=== PATIENT | male | born 1995 | race Caucasian/White ===

== ENCOUNTER 2021-07-11 17:30 | Observation (INO) ==
[2021-07-11] MEDS ORDERED: TXA 10% Non-IV Routes 100 MG/ML VIAL NEB ONE (18:09)
[2021-07-11] MEDS ORDERED: DEXAMETHASONE SOD INJ 4 MG/ML VIAL IV STA (18:10)
[2021-07-11] MEDS ORDERED: ONDANSETRON INJ 2 MG/ML 2 ML VIAL IV STA (18:10)
[2021-07-11] MEDS ORDERED: AMPICILLIN/SULBACTAM SOD 3,000 MG in 0.9 % SODIUM CHLORIDE 100 ML IV STA (18:10)
--- NOTE | 2021-07-11 18:27 | Emergency Department Note ---
Impression & Plan Acute tonsillitis, Infectious mononucleosis ED Provider Note NAME: DELVIS SWARTZ AGE: 25 SEX: M : 1995 ARRIVES VIA: Walk-In INFORMANT: Patient, ED PROVIDER(S): Barry Moran DO CHIEF COMPLAINT: Sore throat HPI: The patient is a 25-year-old male who presented to the emergency department for sore throat. The patient states he has had symptoms for the course the last few weeks. He was seen while he was at home at an urgent care and was diagnosed with mononucleosis. He started having worsening symptoms over the course the last few days and started having blood from his tonsil. The patient has a bag and the spitting into. He is having marc blood from the tonsil. He was diagnosed with mononucleosis. He was told he had a small ulcer on the tonsil at that time. He has had no fever. He denies having any abdominal pain. He has had no weakness in the arms or legs. Symptoms are moderate to severe. He has been taking [id number] medication without relief. ROS: See above HPI for pertinent positives & negatives. A total of 10 systems reviewed and were otherwise negative. PAST MEDICAL HISTORY: See Below PAST SURGICAL HISTORY: See Below FAMILY HISTORY: See Below SOCIAL HISTORY: See Below HOME MEDICATIONS: See Below ALLERGIES: See Below VITALS: See Below PHYSICAL EXAMINATION: GENERAL: The patient is awake and alert. The patient is very anxious appearing. EYES: The conjunctivae are clear. The pupils are round and reactive. EARS, NOSE, MOUTH AND THROAT: The nose is without any evidence of any deformity. Bilateral tonsillar hypertrophy with bleeding noted from the right tonsil was noted. NECK: The neck is nontender and supple. RESPIRATORY: Normal respiratory effort is noted there is no evidence of wheezing rhonchi or rales CARDIOVASCULAR: Regular rate and rhythm noted there no murmurs rubs or gallops normal S1 normal S2. GASTROINTESTINAL: The abdomen is soft. Abdomen is nontender. MUSCULOSKELETAL/EXTREMITIES: There is no evidence of gross deformity full range of motion is noted in the hips and shoulders. SKIN: There is no obvious evidence of any rash. There are no petechiae, pallor or cyanosis noted. NEUROLOGIC: Patient is awake alert and oriented x3. MEDICAL DECISION MAKING: The patient is a 25-year-old male who presented to the emergency department for an evaluation of hemorrhagic tonsillitis. The patient was diagnosed with mononucleosis recently. He started having bleeding in his throat. The patient presented with marc blood in an emesis basin. The patient was treated with TXA nebulizer. He was also given IV fluids IV antibiotics and IV steroids. He was reevaluated multiple times. He had significant improvement of his symptoms. I discussed patient's laboratory and radiographic studies with him. Given his findings I discussed his case with the on-call ear nose and throat physician as well as the on-call [facility] hospitalist. They have agreed to evaluate the patient for further management and disposition. Triage Nursing notes reviewed. Prior medical records reviewed Vital Signs: reviewed and remarkable for no significant abnormalities Differential diagnosis: Viral syndrome, tonsillitis, streptococcal pharyngitis, mononucleosis, peritonsillar abscess, retropharyngeal abscess, otitis, pneumonia, influenza, as well as other pathologies. ER treatment provided: See below Diagnostics interpreted by me: ECG: none Cardiac Monitoring: An order was placed for continuous cardiac monitoring. The monitor shows a rate of 77 bpm with sinus rhythm. Laboratory studies: As stated above and show below. Imaging studies: See below Consultation(s): I discussed this case with Dr. Mott who is on-call for ear nose and throat. He will evaluate the patient in the emergency department for further management. I discussed this case with Dr. Hannah [facility] He will evaluate the patient in the emergency department for further management. Past Med/Surg History Medical History (Updated 07/11/21 @ 23:22 by Barry Moran DO) Tinnitus very infrequent Surgical History (Updated 07/11/21 @ 23:11 by Iliana Trinidad RN) [place] teeth removed Social History Smoking Status: Former smoker Second Hand Exposure: No; Do You Dip or Chew Tobacco: No; Tobacco Cessation Education Requested by Patient: No Hx Alcohol Use: Yes Alcohol type: beer Hx Substance Use: Yes Last Used Substance: Unknown Last Used Substance Other:: very occasional Preferred Language: Colombian Communication Ability: Effective Emergency Room Specialist Required: No Beliefs That Will Affect Care: None Current Living Situation: Family Current Living Situation Comment: mother and brothers--[employer] Other Information That Helps Us Care for You: No Feels Safe at Home: Yes Safety Concerns: Feels Safe At This Time Assistive Devices: Glasses Allergies Allergies Allergy/AdvReac Type Severity Reaction Status Date / Time No Known Allergies Allergy Unverified 07/11/21 18:24 Home Meds Home Medications Medication Instructions Recorded Confirmed Magic Mouthwash 1 applic PO UD 07/11/21 07/11/21 prednisone 20 mg tablet 20 mg PO BID 07/11/21 07/11/21 Results & Data (ED) Vital Signs Vital Signs - 24 hr 07/11/21 17:35 07/11/21 18:30 07/11/21 18:41 Temperature 37.3 C Temperature Source Oral Pulse Rate 85 85 Pulse Rate [Apical] 76 Pulse Rate from SpO2 Sensor Pulse Rhythm Regular Respiratory Rate 18 18 18 Respiratory Effort / Characteristics Non-Labored Spontaneous Non-Labored Spontaneous Respiratory Depth Normal Blood Pressure 127/72 Blood Pressure [Right Arm] Blood Pressure Mean 90 Blood Pressure Mean [Right Arm] Pulse Oximetry 96 100 100 Oxygen Delivery Method Room Air Room Air Room Air Sepsis Recent Fever Within 48 Hours No Sepsis New/Unexplained Change in Mental Status No Sepsis Action Taken by Nursing No Action Required 07/11/21 19:30 07/11/21 20:32 07/11/21 21:00 Temperature Temperature Source Pulse Rate 85 70 Pulse Rate [Apical] 76 Pulse Rate from SpO2 Sensor 70 Pulse Rhythm Respiratory Rate 15 18 Respiratory Effort / Characteristics Respiratory Depth Blood Pressure 132/74 126/66 Blood Pressure [Right Arm] 123/72 Blood Pressure Mean 93 86 Blood Pressure Mean [Right Arm] 89 Pulse Oximetry 97 95 Oxygen Delivery Method Room Air Sepsis Recent Fever Within 48 Hours Sepsis New/Unexplained Change in Mental Status Sepsis Action Taken by Shelter Medications Current Medication List: was personally reviewed by me Laboratory Data Attestation: I reviewed the patient's lab results. Result diagrams: 07/11/21 18:40 07/11/21 18:40 Lab Results 07/11/21 07/11/21 07/11/21 Range/Units 18:40 18:40 18:40 WBC 7.36 (4.8-10.8) K/uL RBC 4.88 (4.7-6.1) M/uL Hgb 14.0 (14.0-18.0) g/dL Hct 41.1 L (42-52) % MCV 84.2 (80-100) fL MCH 28.7 (25-34) pg MCHC 34.1 (32-36) g/dL RDW Std Deviation 40.7 (36.4-46.3) fL RDW Coeff of Aria 13.5 (11.5-14.5) % Plt Count 256 (130-400) K/uL MPV 9.8 (7.4-10.4) fL Neutrophils % (Manual) 42.6 % Lymphocytes % (Manual) 23.5 % Reactive Lymphs % (Man) 25.2 % Monocytes % (Manual) 8.7 % Neutrophils # (Manual) 3.14 (1.4-6.5) K/uL Total Absolute Neuts 3.14 (1.4-6.5) K/uL Lymphocytes # (Manual) 1.73 (1.2-3.4) K/uL Reactive Lymphs # 1.85 K/uL Total Abs Lymphocytes 3.58 H (1.2-3.4) K/uL Monocytes # (Manual) 0.64 H (0.11-0.59) K/uL Sodium 138 (136-145) mmol/L Potassium 3.8 (3.5-5.1) mmol/L Chloride 104 (98-107) mmol/L Carbon Dioxide 27 (21-32) mmol/L Anion Gap 7.0 (3-11) BUN 20 H (7-18) mg/dl Creatinine 0.95 (0.6-1.4) mg/dl Est Cr Clr Drug Dosing 116.0 ml/min Est GFR ( Amer) 129.3 ml/min Est GFR (Non-Af Amer) 111.6 ml/min BUN/Creatinine Ratio 21.0 H (10-20) Glucose 99 (70-99) mg/dl Calcium 8.9 (8.5-10.1) mg/dl Total Bilirubin 0.9 (0.2-1) mg/dl AST 51 H (15-37) U/L ALT 237 H (12-78) U/L Alkaline Phosphatase 191 H (45-117) U/L Total Protein 8.4 H (6.4-8.2) gm/dl Albumin 3.7 (3.4-5.0) gm/dl Globulin 4.7 H (2.5-4.0) gm/dl Albumin/Globulin Ratio 0.8 L (0.9-2) COVID-19 Eval Order SARS-CoV-2 (PCR) (Negative) Monoscreen Positive A (Negative) 07/11/21 07/11/21 Range/Units 19:10 19:10 WBC (4.8-10.8) K/uL RBC (4.7-6.1) M/uL Hgb (14.0-18.0) g/dL Hct (42-52) % MCV (80-100) fL MCH (25-34) pg MCHC (32-36) g/dL RDW Std Deviation (36.4-46.3) fL RDW Coeff of Aria (11.5-14.5) % Plt Count (130-400) K/uL MPV (7.4-10.4) fL Neutrophils % (Manual) % Lymphocytes % (Manual) % Reactive Lymphs % (Man) % Monocytes % (Manual) % Neutrophils # (Manual) (1.4-6.5) K/uL Total Absolute Neuts (1.4-6.5) K/uL Lymphocytes # (Manual) (1.2-3.4) K/uL Reactive Lymphs # K/uL Total Abs Lymphocytes (1.2-3.4) K/uL Monocytes # (Manual) (0.11-0.59) K/uL Sodium (136-145) mmol/L Potassium (3.5-5.1) mmol/L Chloride (98-107) mmol/L Carbon Dioxide (21-32) mmol/L Anion Gap (3-11) BUN (7-18) mg/dl Creatinine (0.6-1.4) mg/dl Est Cr Clr Drug Dosing ml/min Est GFR ( Amer) ml/min Est GFR (Non-Af Amer) ml/min BUN/Creatinine Ratio (10-20) Glucose (70-99) mg/dl Calcium (8.5-10.1) mg/dl Total Bilirubin (0.2-1) mg/dl AST (15-37) U/L ALT (12-78) U/L Alkaline Phosphatase (45-117) U/L Total Protein (6.4-8.2) gm/dl Albumin (3.4-5.0) gm/dl Globulin (2.5-4.0) gm/dl Albumin/Globulin Ratio (0.9-2) COVID-19 Eval Order Covid19 at [facility] SARS-CoV-2 (PCR) NEGATIVE (Negative) Monoscreen (Negative) Administered Medications Discontinued Medications Dexamethasone (Dexamethasone Sod Inj 4 Mg/Ml Vial) 10 mg IV NOW STA Stop: 07/11/21 18:11 Last Admin: 07/11/21 18:46 Dose: 10 mg Documented by: [id number] Ampicillin Sodium/Sulbactam Sodium 3,000 mg/ Sodium Chloride 108 mls @ 200 mls/hr IV NOW STA Stop: 07/11/21 18:42 Last Infusion: 07/11/21 19:34 Dose: 0 mls/hr Documented by: [id number] Admin: 07/11/21 19:00 Dose: 200 mls/hr Documented by: [id number] Ioversol (Optiray 320 100ml) 94 ml IV ONCE ONE Stop: 07/11/21 19:59 Last Admin: 07/11/21 19:58 Dose: 1 ml Documented by: [id number] Ondansetron HCl (Ondansetron Inj 2 Mg/Ml 2 Ml Vial) 4 mg IV NOW STA Stop: 07/11/21 18:11 Last Admin: 07/11/21 18:47 Dose: 4 mg Documented by: [id number] Tranexamic Acid (Txa 10% Non-Iv Routes 100 Mg/Ml Vial) 500 mg NEB ONE ONE Stop: 07/11/21 18:10 Last Admin: 07/11/21 18:46 Dose: 500 mg Documented by: [id number] Imaging Data Radiologist's Impression: Patient: DELVIS SWARTZ (Male) : 89 Status: ER Date: 07/11/21 20:24 Room #: History: sore throat 94 ml opti dg ek Slices: 715 Priors: Tech: Honorio Mejia @ [id number] Exams: CT NECK Contrast: IV Amt: 94ML Accession Numbers: [id number] Referring Physician: REFERRED SELF Preliminary Findings Only See Final Report For Complete Findings CT NECK: Gas and fluid collections of the lingula tonsils bilaterally with peripheral enhancement concerning for peritonsillar or intratonsillar abscesses bilaterally. On the right this measures approximately 18 x 17 x 9 mm. On the left this measures approximately 11 x 11 x 6 mm. These changes are superimposed on diffuse tonsillar inflammation. Mildly enlarged bilateral cervical chain lymph nodes, likely reactive. Complete opacification of the right maxillary sinus with fluid. Radiologist: Adriel Vaca MD Study ready at 20:34 and initial results transmitted at 20:56 Discharge Plan Visit Data Chief Complaint: Illness Stated Complaint: HAS MONO, COUGHING UP BLOOD ED Provider: Barry Moran Discharge Problem: Acute tonsillitis, Infectious mononucleosis Patient Disposition: Admitted As Inpatient Condition: Good Discharge Instructions Interventions: ED Discharge Assessment Last Done: 07/11/21 22:48
[2021-07-11 19:13] LABS: Hematocrit (blood only) 41.1 % (42-52); Mean Corpuscular Hemoglobin 28.7 pg (25-34); Mean Corpuscular Hgb Conc 34.1 g/dL (32-36); Mean Corpuscular Volume 84.2 fL (80-100); Mean Platelet Volume 9.8 fL (7.4-10.4); Platelet Count 256 K/uL (130-400); RDW Coefficient of Variation 13.5 % (11.5-14.5); RDW Standard Deviation 40.7 fL (36.4-46.3); Red Blood Count 4.88 M/uL (4.7-6.1); White Blood Count 7.36 K/uL (4.8-10.8)
[2021-07-11 19:36] LABS: Albumin Level 3.7 gm/dl (3.4-5.0); Calcium 8.9 mg/dl (8.5-10.1); Est GFR (African American) 129.3 ml/min; Est GFR (Non-African American) 111.6 ml/min; Potassium 3.8 mmol/L (3.5-5.1)
[2021-07-11 19:39] LABS: Albumin Globulin Ratio 0.8 (0.9-2); Bilirubin,Total 0.9 mg/dl (0.2-1); Globulin 4.7 gm/dl (2.5-4.0); Total Protein 8.4 gm/dl (6.4-8.2)
[2021-07-11 19:47] LABS: ALC (manual) 3.58 K/uL (1.2-3.4); ANC (manual) 3.14 K/uL (1.4-6.5); Lymphocytes # (manual) 1.73 K/uL (1.2-3.4); Lymphocytes % (manual) 23.5 %; Monocytes # (manual) 0.64 K/uL (0.11-0.59); Monocytes % (manual) 8.7 %; Neutrophils # (manual) 3.14 K/uL (1.4-6.5); Neutrophils % (manual) 42.6 %; Reactive Lymphocytes # (manual) 1.85 K/uL; Reactive Lymphocytes % (manual) 25.2 %
[2021-07-11] MEDS ORDERED: OPTIRAY 320 100ml IV ONE (19:58)
--- NOTE | 2021-07-11 21:42 | History & Physical Report ---
Date of Service July 11, 2021 Assessment & Plan (1) Infectious mononucleosis: Plan: 25 yo M admitted for management of hemorrhagic tonsilitis. 1. Hemorrhagic tonsilitis - ENT consult - received txax1 in ER with improvement of bleeding - daily CBC - IV clindamycin for coverage of bacterial superinfection - dexamethasone 10 mg IV x1, 2mg daily going forward - swish and swallow magic mouthwash for mouth pain - NPO with ice chips - zofran prn 2. Infectious Mononucleosis - Monospot positive - contact sport precautions DVT ppx: low risk, activity ad damian FEN/GI: NPO Code Status: Full Code Dispo: Med/Surg (2) Hemorrhage from tonsillar bed: History of Present Illness Primary Care Provider: [facility] 25 yo M with no pmh in ER second day in a row for worsening sore throat now with hemoptysis. States that he began feeling ill approximately 2 weeks ago, began having a sore throat 1 week ago. Tested positive for mono on 07/08. +Chills, fevers, night sweats. No vomiting, nausea, diarrhea. +pain with swallowing food and liquids, some relief with magic mouthwash. was given daily PO prednisone by urgent care to help with inflammation of tonsils. States he had tonsillectomy at some point but doesn't remember when? No hx mono, no chronic medical conditions. Allergies Allergy/AdvReac Type Severity Reaction Status Date / Time No Known Allergies Allergy Unverified 07/11/21 18:24 Home Medications Medication Instructions Recorded Confirmed Type Magic Mouthwash 1 applic PO UD 07/11/21 07/11/21 History clindamycin HCl 300 mg capsule 300 mg PO Q6H 5 Days #20 cap 07/12/21 Rx Past Med/Surg History Medical History Tinnitus very infrequent Surgical History [place] teeth removed Social History Smoking Status: Former smoker Second Hand Exposure: No; Do You Dip or Chew Tobacco: No; Tobacco Cessation Education Requested by Patient: No Hx Alcohol Use: Yes Alcohol type: beer Hx Substance Use: Yes Last Used Substance: Unknown Last Used Substance Other:: very occasional Preferred Language: Bulgarian Communication Ability: Effective Payroll Accountant Required: No Beliefs That Will Affect Care: None Current Living Situation: Family Current Living Situation Comment: mother and brothers--[employer] Other Information That Helps Us Care for You: No Feels Safe at Home: Yes Safety Concerns: Feels Safe At This Time Assistive Devices: None Review of Systems Review of Systems: All systems reviewed & are unremarkable except as noted in Subjective Physical Exam Physical Exam: Constitutional: in no apparent distress, sitting comfortably in bed. Eyes: EOMI, pupils equal and reactive bilaterally, no scleral icterus HEENT: BL tonsillar enlargement, large tonsillar clot on right side Neck: tender cervical lymphadenopathy on right Cardiac: RRR, no murmurs, gallops or rubs. Normal S1, S2 Pulm: CTA BL, no wheezes, rhonchi, crackles or rubs, moving air well throughout both lungs Abd: soft, nontender, nondistended, normal bowel sounds, no rebound or guarding Extremities: 2+ peripheral pulses, no edema Neuro: no focal deficits, moving all 4 limbs, A&Ox3 Results & Data Results & Data ([facility]) Vital Signs (Past 12 Hours) Vital Signs Temp Pulse Pulse Resp BP BP Pulse Ox 07/11/21 21:00 70 18 126/66 95 07/11/21 20:32 85 15 132/74 97 07/11/21 19:30 76 123/72 07/11/21 18:41 76 18 100 07/11/21 18:30 85 18 100 07/11/21 17:35 37.3 C 85 18 127/72 96 Laboratory Results Laboratory Results WBC 7.36 K/uL (4.8-10.8) 07/11/21 18:40 RBC 4.88 M/uL (4.7-6.1) 07/11/21 18:40 Hgb 14.0 g/dL (14.0-18.0) 07/11/21 18:40 Hct 41.1 % (42-52) L 07/11/21 18:40 MCV 84.2 fL (80-100) 07/11/21 18:40 MCH 28.7 pg (25-34) 07/11/21 18:40 MCHC 34.1 g/dL (32-36) 07/11/21 18:40 RDW Std Deviation 40.7 fL (36.4-46.3) 07/11/21 18:40 RDW Coeff of Aria 13.5 % (11.5-14.5) 07/11/21 18:40 Plt Count 256 K/uL (130-400) 07/11/21 18:40 MPV 9.8 fL (7.4-10.4) 07/11/21 18:40 Neutrophils % (Manual) 42.6 % 07/11/21 18:40 Lymphocytes % (Manual) 23.5 % 07/11/21 18:40 Reactive Lymphs % (Man) 25.2 % 07/11/21 18:40 Monocytes % (Manual) 8.7 % 07/11/21 18:40 Neutrophils # (Manual) 3.14 K/uL (1.4-6.5) 07/11/21 18:40 Total Absolute Neuts 3.14 K/uL (1.4-6.5) 07/11/21 18:40 Lymphocytes # (Manual) 1.73 K/uL (1.2-3.4) 07/11/21 18:40 Reactive Lymphs # 1.85 K/uL 07/11/21 18:40 Total Abs Lymphocytes 3.58 K/uL (1.2-3.4) H 07/11/21 18:40 Monocytes # (Manual) 0.64 K/uL (0.11-0.59) H 07/11/21 18:40 Sodium 138 mmol/L (136-145) 07/11/21 18:40 Potassium 3.8 mmol/L (3.5-5.1) 07/11/21 18:40 Chloride 104 mmol/L (98-107) 07/11/21 18:40 Carbon Dioxide 27 mmol/L (21-32) 07/11/21 18:40 Anion Gap 7.0 (3-11) 07/11/21 18:40 BUN 20 mg/dl (7-18) H 07/11/21 18:40 Creatinine 0.95 mg/dl (0.6-1.4) 07/11/21 18:40 Est Cr Clr Drug Dosing 116.0 ml/min 07/11/21 18:40 Est GFR ( Amer) 129.3 ml/min 07/11/21 18:40 Est GFR (Non-Af Amer) 111.6 ml/min 07/11/21 18:40 BUN/Creatinine Ratio 21.0 (10-20) H 07/11/21 18:40 Glucose 99 mg/dl (70-99) 07/11/21 18:40 Calcium 8.9 mg/dl (8.5-10.1) 07/11/21 18:40 Total Bilirubin 0.9 mg/dl (0.2-1) 07/11/21 18:40 AST 51 U/L (15-37) H 07/11/21 18:40 ALT 237 U/L (12-78) H 07/11/21 18:40 Alkaline Phosphatase 191 U/L (45-117) H 07/11/21 18:40 Total Protein 8.4 gm/dl (6.4-8.2) H 07/11/21 18:40 Albumin 3.7 gm/dl (3.4-5.0) 07/11/21 18:40 Globulin 4.7 gm/dl (2.5-4.0) H 07/11/21 18:40 Albumin/Globulin Ratio 0.8 (0.9-2) L 07/11/21 18:40 COVID-19 Eval Order Covid19 at [facility] 07/11/21 19:10 SARS-CoV-2 (PCR) NEGATIVE (Negative) 07/11/21 19:10 Monoscreen Positive (Negative) A 07/11/21 18:40 Group A Strep (PCR) NOT DETECTED (NotDetected) 07/11/21 Unknown Supervising Physician Co-Signing Physician Notes Attending addendum: I have physically seen this patient, have supervised the medical residents activities, and agree with the H&P unless as otherwise noted. Assessment and Plan: Infectious mononucleosis/hemorrhagic tonsillitis- Given dexamethasone 10 mg IV in ED continue 4 mg IV every 6 hours Clindamycin 300 mg IV every 8 hours NPO with ice chips Zofran 4 mg IV every 6 hours as needed Famotidine 20 mg IV every 12 hours Remaining orders and notations as noted Resident Activity Tracking Resident Involvement: Resident Care Provided Care Provided: Adult Hospital Medicine (1) Infectious mononucleosis Infectious mononucleosis complication: other complications Infectious mononucleosis etiology: unspecified organism Qualified Code(s): B27.99 - Infectious mononucleosis, unspecified with other complication
[2021-07-11] MEDS ORDERED: ONDANSETRON INJ 2 MG/ML 2 ML VIAL IV PRN (23:08)
[2021-07-11] MEDS ORDERED: ACETAMINOPHEN 325 MG TAB PO PRN (23:08)
[2021-07-11] MEDS: CLINDAMYCIN 600 MG in DEXTROSE 5% 50 ML IV SCH (23:49)
[2021-07-12] MEDS ORDERED: dexAMETHasone 2 MG in SYRINGE 0 ML IV SCH (06:00)
--- NOTE | 2021-07-12 07:22 | CT Scan Report ---
CT SCAN OF THE NECK WITH IV CONTRAST CLINICAL HISTORY: Sore throat. COMPARISON STUDY: No priors. TECHNIQUE: Following the IV administration of 94 cc of Optiray 320, CT scan of the soft tissues of th e neck was performed from the skull base to the upper chest. Images are reviewed in the axial, sagitt al, and coronal planes. IV contrast was administered without complication. A dose lowering techniqu e was utilized adhering to the principles of ALARA. CT DOSE: 521.79 mGy.cm FINDINGS: Pharynx: The tonsils appear enlarged and heterogeneous with mucosal hyperemia. There is fluid within the pharynx with surrounding mucosal hyperemia. A large pocket of fluid on the right seen on axial im age #133 appears to communicate with the pharynx. This measures 2.2 x 1.2 cm, and a small peritonsill ar abscess is not entirely excluded. The pharyngeal airway is patent. There is mucosal hyperemia of t he pharynx. There is no evidence of mass lesion. The vocal cords are symmetric. The parapharyngeal fa t is well maintained. The prevertebral/retropharyngeal soft tissues are within normal limits. The epi glottis is normal. Lymphadenopathy: There are mildly enlarged bilateral cervical chain lymph nodes. A union contract representative nod e on the right seen on image #169 measures 1.9 x 1.9 cm. Thyroid: Normal in size and attenuation. Salivary glands: The parotid and submandibular glands are within normal limits. Brain parenchyma: The visualized brain parenchyma at the skull base is normal in appearance. Vascular structures: The carotid arteries and jugular veins are patent. Skeletal structures: Imaged portions of the calvarium at the skull base are within normal limits. The cervical spine appears intact. Orbits: The bony orbits are intact. Orbital contents are normal in appearance. Sinuses and mastoids: There is subtotal opacification of the right maxillary antrum. Trace mucosal th ickening and a 1.9 cm retention cyst is noted in the left maxillary sinus. The mastoid air cells are well pneumatized. Lung apices: Visualized apical lung parenchyma is clear. IMPRESSION: 1. Findings are consistent with pharyngitis/tonsillitis. 2. The airway is patent. 3. There are pockets of fluid within the pharyngeal lumen with surrounding mucosal thickening and hyp eremia. The largest is on the right and measures 2.2 x 1.2 cm. Although a portion of this appears to communicate with the pharyngeal lumen, a developing peritonsillar abscess is not excluded. 4. Mildly enlarged cervical lymph nodes are likely reactive. 5. Right maxillary sinus disease. ACT 112: Negative or not required by law. Electronically signed by: Honorio Merida M.D. 07/12/2021 7:21 AM
[2021-07-12] MEDS: CLINDAMYCIN 600 MG in DEXTROSE 5% 50 ML IV SCH (07:43)
[2021-07-12 08:40] LABS: Hematocrit (blood only) 37.2 % (42-52); Hemoglobin 12.4 g/dL (14.0-18.0); Mean Corpuscular Hemoglobin 28.1 pg (25-34); Mean Corpuscular Hgb Conc 33.3 g/dL (32-36); Mean Corpuscular Volume 84.4 fL (80-100); Mean Platelet Volume 9.7 fL (7.4-10.4); Platelet Count 252 K/uL (130-400); RDW Coefficient of Variation 13.5 % (11.5-14.5); RDW Standard Deviation 41.1 fL (36.4-46.3); Red Blood Count 4.41 M/uL (4.7-6.1); White Blood Count 7.03 K/uL (4.8-10.8)
[2021-07-12 09:11] LABS: ALC (manual) 3.12 K/uL (1.2-3.4); ANC (manual) 3.48 K/uL (1.4-6.5); Microcytosis Present; Monocytes # (manual) 0.43 K/uL (0.11-0.59); Monocytes % (manual) 6.1 %; Neutrophils # (manual) 3.48 K/uL (1.4-6.5); Neutrophils % (manual) 49.5 %; Polychromasia 1+; Reactive Lymphocytes # (manual) 1.22 K/uL; Reactive Lymphocytes % (manual) 17.4 %
[2021-07-12 09:16] LABS: Albumin Level 3.1 gm/dl (3.4-5.0); BUN Creatinine Ratio 26.8 (10-20); Calcium 8.6 mg/dl (8.5-10.1); Creatinine Clr Calc Pharmacy 141.3 ml/min; Est GFR (African American) 146.4 ml/min; Est GFR (Non-African American) 126.3 ml/min; Potassium 4.2 mmol/L (3.5-5.1)
[2021-07-12 09:19] LABS: Albumin Globulin Ratio 0.7 (0.9-2); Bilirubin,Total 0.8 mg/dl (0.2-1); Globulin 4.5 gm/dl (2.5-4.0); Total Protein 7.6 gm/dl (6.4-8.2)
--- NOTE | 2021-07-12 12:58 | ENT Consultation ---
Date of Consultation July 12, 2021 Assessment & Plan (1) Hemorrhage from tonsillar bed: much imoroved, no further bleeding, diet and D/C (2) Acute tonsillitis: (3) Infectious mononucleosis: History of Present Illness Reason for Consultation: Bleeding tonsils Attending Physician: Prasanth Singer MD History of Present Illness 25 yo with viral type illness x 2 weeks, S/T x 1 week, CT in ER showed possible abcess lingual tonsils, admitted for IV antibiotics and steroids, much improved this AM, no bleeding, tonsils much smaller Allergies Allergy/AdvReac Type Severity Reaction Status Date / Time No Known Allergies Allergy Unverified 07/11/21 18:24 Home Medications Medication Instructions Recorded Confirmed Type Magic Mouthwash 1 applic PO UD 07/11/21 07/11/21 History prednisone 20 mg tablet 20 mg PO BID 07/11/21 07/11/21 History Patient History Medical History Tinnitus very infrequent Surgical History [place] teeth removed Social History Smoking Status: Former smoker Second Hand Exposure: No; Do You Dip or Chew Tobacco: No; Tobacco Cessation Education Requested by Patient: No Hx Alcohol Use: Yes Alcohol type: beer Hx Substance Use: Yes Last Used Substance: Unknown Last Used Substance Other:: very occasional Preferred Language: Sinhala Communication Ability: Effective Utilization Review Coordinator Required: No Beliefs That Will Affect Care: None Current Living Situation: Family Current Living Situation Comment: mother and 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 Other Information That Helps Us Care for You: No Feels Safe at Home: Yes Safety Concerns: Feels Safe At This Time Assistive Devices: None Physical Exam Constitutional: WD/WN, vitals as above Eyes: PERRL, conjunctivae normal, anicteric sclerae ENMT: external ear and nose normal, oropharynx normal Mouth: + oropharynx abnormality (tonsils much smaller, 2+, no blood) Neck: + anterior neck swelling (shotty adenopathy) Respiratory: normal respiratory effort, lungs clear to auscultation Cardiovascular: RRR, no murmur, no edema Results & Data ([facility]) Vital Signs (Past 12 Hours) Vital Signs Temp Pulse Resp BP Pulse Ox 07/12/21 07:56 36.6 C 59 L 16 117/71 99 Laboratory Results [place] spot +, WBC OK Diagnostic Findings CT neck reviwed, no sign of abcess (1) Acute tonsillitis Pharyngitis/tonsillitis etiology: infectious mononucleosis Qualified Code(s): J03.80 - Acute tonsillitis due to other specified organisms; B27.90 - Infectious mononucleosis, unspecified without complication (2) Infectious mononucleosis Infectious mononucleosis complication: other complications Infectious mononucleosis etiology: unspecified organism Qualified Code(s): B27.99 - Infectious mononucleosis, unspecified with other complication
--- NOTE | 2021-07-12 15:06 | Discharge Summary ---
Date of Service July 12, 2021 Admission HPI Per Admitting Provider 25 yo M with no pmh in ER second day in a row for worsening sore throat now with hemoptysis. States that he began feeling ill approximately 2 weeks ago, began having a sore throat 1 week ago. Tested positive for mono on 07/08. +Chills, fevers, night sweats. No vomiting, nausea, diarrhea. +pain with swallowing food and liquids, some relief with magic mouthwash. was given daily PO prednisone by urgent care to help with inflammation of tonsils. States he had tonsillectomy at some point but doesn't remember when? No hx mono, no chronic medical conditions. Principal Diagnosis Hemorrhagic tonsillitis Infectious mononucleosis Discharge Exam Constitutional WD/WN, vitals as above Respiratory normal respiratory effort Musculoskeletal no cyanosis or clubbing, extremities motor strength 5/5 Skin no rashes, warm and dry Neurologic moves all extremities and awake; not confused Psychiatric A+Ox3, euthymic affect Discharge Data Allergies Allergy/AdvReac Type Severity Reaction Status Date / Time No Known Allergies Allergy Unverified 07/11/21 18:24 Consultations 07/11/21 21:18 ED Decision to Admit Stat 07/11/21 23:17 Consult Otolaryngology (Head and Neck) Routine Ordered Studies 07/11/21 18:10 CT soft tissue neck w con Stat IMPRESSION: 1. Findings are consistent with pharyngitis/tonsillitis. 2. The airway is patent. 3. There are pockets of fluid within the pharyngeal lumen with surrounding mucosal thickening and hyperemia. The largest is on the right and measures 2.2 x 1.2 cm. Although a portion of this appears to communicate with the pharyngeal l umen, a developing peritonsillar abscess is not excluded. 4. Mildly enlarged cervical lymph nodes are likely reactive. 5. Right maxillary sinus disease. Hospital Course (1) Infectious mononucleosis: (2) Hemorrhage from tonsillar bed: Joey Barajas is a 25 year old were observed overnight due to infectious mononucleosis with hemorrhagic tonsillitis. This was treated with intravenous antibiotics and steroids. He was cleared by size cutter Dr Mott with resolution of his symptoms overnight. He was tolerating a pureed diet on discharge. He will be continued on clindamycin per Dr Mott's recommendation due to coverage for secondary bacterial infection. Total Time Total Time Spent Total Time Spent (In Minutes): 35 Discharge Plan Discharge Items Patient Disposition: Home - Self-Care Reason For Visit: HEMORRHAGIC TONSILLITIS Discharge Diagnosis: Hemorrhagic tonsilitis Condition on Discharge: Good Activity: Resume your previous activity Non-emergency contact: Surgeon Call non-emergency contact if: you have any medication questions and your symptoms worsen Follow-up/Referrals: Belinda Mott MD [Physician] - [facility] [Primary Care Provider] - Diet: Regular Diet Texture: Mechanical soft (ground) Addtl Attending Provider Instructions: You were observed overnight due to infectious mononucleosis with hemorrhagic tonsillitis. This was treated with intravenous antibiotics and steroids. You were reviewed by size cutter Dr Mott with resolution of your symptoms the following day. You are now tolerating a pureed diet and are medically stable for discharge. Continue on magic mouthwash as needed. Recommend ontinuing on antibiotics as prescribed but steroids can be discontinued. Use acetaminophen and ibuprofen as needed for pain relief. Please see additional mononucleosis discharge instructions. Please call Dr Mott's number above for follow up. Kind regards, Dr Prasanth Singer Pending Studies at Discharge: No Stand-Alone Forms: My [facility] [employer], Smoking Cessation Medications and DC Order Prescriptions: New clindamycin HCl 300 mg capsule 300 mg PO Q6H 5 Days Qty: 20 RF: 0 Continued Magic Mouthwash 1 applic PO UD RF: 0 Discontinued prednisone 20 mg tablet 20 mg PO BID RF: 0 Discharge Orders: Discharge Order (Routine); Ordered 07/12/21 Ordered By: Prasanth Suarez/Other Patient Handouts: ED Mononucleosis Admission Data Admit Date/Time: 07/11/21 21:44 Attending Provider: Prasanth Singer Admit Provider: Zuleyma Schmidt Primary Care Provider: [facility] Other Providers: Magnus Faustin ; Belinda Mott Other Interventions: Discharge Summary Assessment (RN) Last Done: 07/12/21 15:08 Coding Level of Care Code 70927 OBS Care - Discharge Diagnoses Infectious mononucleosis B27.99 Infectious mononucleosis complication: other complications Infectious mononucleosis etiology: unspecified organism Hemorrhage from tonsillar bed J35.8
--- NOTE | 2021-07-12 21:16 | Billing Data ---
Date of Service July 12, 2021 Coding Level of Care Code INT OBSERVATION CARE 70M LVL 3
== END 2021-07-12 16:05 | disposition home or self-care (01) ==
LOC: ED 17:30 → 3N 17:30 → SUATTDRO 21:44 → 3N 22:48